=== PATIENT | male | born 1945 | race Caucasian/White ===

== ENCOUNTER → 2024-04-30 | Outpatient (CLI) | payer MEDICARE ==
[2024-04-30 15:13] LABS: HCT 39.9 % (39.6-50.0); HGB 13.6 g/dL (13.0-17.0); MCH 33.3 pg (27.0-32.0); MCHC 34.1 g/dL (32.0-37.0); MCV 97.8 FL (80.0-97.0); NRBC Per 100 WBC 0 X 10*3/uL (0.00-0.01); Platelet Count 224 X 10*3/uL (140-440); RBC 4.08 X 10*6/uL (4.40-5.60); RDW 12.2 % (11.5-14.5); WBC 4.04 X 10*3/uL (4.50-10.00)
[2024-04-30 15:19] LABS: Blood Urea Nitrogen 9.8 mg/dL (9.0-27.0); Carbon Dioxide 26.9 mmol/L (21.6-31.8); Chloride 97 mmol/L (96-109); Potassium 4.6 mmol/L (3.5-5.5); Sodium 133 mmol/L (135-145)
== END | disposition home or self-care (01) ==
LOC: LABPAT 08:19
PROVIDERS: ATTEND Internal Medicine Clinical Cardiac Electrophysiology
DX: Z01.812 Encounter for preprocedural laboratory examination (principal); I44.1 Atrioventricular block, second degree; R00.1 Bradycardia, unspecified
CPT/HCPCS: 80051; 82565; 84520; 85027

== ENCOUNTER 2024-05-08 11:59 | Day surgery (SDC) | payer MEDICARE ==
[2024-05-08] MEDS: SODIUM CHLORIDE 0.9% 1,000 ML IV SCH (13:04)
[2024-05-08] MEDS: IV FLUID CONTINUATION 1,000 ML IV ONE (13:12)
[2024-05-08] MEDS ORDERED: diphenhydrAMINE 50 MG/ML 1 ML VIAL ONE (14:55)
[2024-05-08] MEDS ORDERED: fentaNYL (PF) 50 MCG/ML 2 ML AMP ONE (14:55)
[2024-05-08] MEDS ORDERED: MIDAZOLAM 2 MG/2 ML VIAL ONE (14:55)
[2024-05-08] MEDS: ceFAZolin 1 GM in SODIUM CHLORIDE 0.9% IRRIG BTL 250 ML IRRIGATION PRN (15:05)
[2024-05-08] MEDS: LIDOCAINE 2% (PF) 20 MG/ML 10 ML AMP SQ ONE (15:32)
[2024-05-08] MEDS: ROPIVACAINE 5MG/ML 20ML VIAL MISCELLANE ONE (15:32)
--- NOTE | 2024-05-08 17:04 | P.PRLE ---
RE: Jony Guzman Dear Liza Jony underwent implantation of a conduction system pacemaker with left bundle pacing for high-grade AV block. Hopefully this preserves his LV function over the years. He will continue statin therapy along with losartan as before and will follow-up in the device clinic in about a week Thank you for entrusting me with the care of the patient Warm regards Sincerely Guillermo Browning
--- NOTE | 2024-05-08 17:07 | P.EPPROC ---
- EP Procedure Note Electrophysiology Procedure Note: Diagnosis Symptomatic bradycardia, unprovoked, no triggering factors Advanced heart block, Mobitz 2 AV block with intermittent third-degree heart block Procedure Dual-chamber pacemaker implantation with conduction system pacing (left bundle pacing) Left upper extremity venogram Details Patient was brought to the EP lab in a fasting state. Written informed consent was obtained prior to the procedure. Conscious sedation provided by [employer]. IV antibiotics administered. Local anesthesia administered. A 4 cm incision made in the pectoral area. Subfascial pocket made. Venous accesses obtained Venous sheaths placed. Leads placed in the right heart. 2 sets of pacing cables were used; one for backup temporary pacing and the other for assessment of current of injury and signal analysis. A 52 cm atrial pacing lead was first positioned in the RV apex for temporary pacing during mapping and conduction system pacing Thresholds were interrogated and backup high output pacing was provided This atrial lead was then removed from the right ventricle and later positioned in the right atrial appendage and the permanent lead A deflected sheath was prepped. A coronary sinus decapolar catheter was placed within this sheath. The catheter along with the sheath was then passed into the right heart, the catheter was prolapsed across the tricuspid valve, into the right ventricle and then further into the right ventricular outflow tract across the pulmonic valve into the pulmonary artery. This sheath was slid over this decapolar catheter into the RVOT. Thereafter the catheter last sheath assembly was withdrawn from the RVOT along the septum to the mid septal area. The sheath was appropriately to to map the right ventricular aspect of the septum. The decapolar catheter was withdrawn, the sheath flushed again and the screw-in pacing lead placed within the sheath. Further detailed unipolar pace-mapping of the septum was performed and once the appropriate based morphology was obtained on lead V1, the lead was screwed into the septum. The lead was screwed in 4-5 returns at a time while monitoring the current of injury, the pacing impedance changes and the paced QRS morphology. The stimulus to peak of V6 QRS was measured at each step. Once a QR or rSR pattern of paced QRS in lead V1 was obtained, a left bundle signal was sought. Impedance was measured and thresholds were measured. An impedance drop of 100-200 ohms but above 550 ohms was targeted along with an unchanged vector of the current of injury signal. The final positioning was based on the QRS morphology in lead V1 and a short stimulus to peak of the V6 QRS of less than 90 ms. The sheath was withdrawn, stability of the pacing lead deep in the septum was confirmed on CORTEZ and [place] views and the sheath was slipped and an adequate heel was provided for the lead. Unipolar and bipolar electrogram morphology obtained Atrial lead positioned in the right atrial appendage. Sensing, thresholds and impedances measured following positioning and securing the lead in the right atrial appendage Left bundle lead parameters: Unipolar pacing impedance 741 ohms, bipolar pacing impedance 893 ohms R waves 10 mV and pacing threshold 0.5 V at 0.4 ms Paced QRS of right bundle branch block type, QRS width 142 ms Stimulus to lead I peak equals 63 ms Stimulus to peak of V6 equals 76 ms Atrial lead parameters: P waves 3.3 mV, pacing threshold 0.5 V at 0.4 ms and pacing impedance of 817 ohms Device clinical partner: [employer] Dania XT DR MRI Dual-chamber pacemaker device connected to the leads and placed in the subfascial pocket Patient tolerated the procedure well without acute complications Pacemaker programming: DDD 60-130 bpm, paced AV delay of 200 ms
[2024-05-08] MEDS: ACETAMINOPHEN IV (For NPO) 1,000 MG in EMPTY BAG 1 BAG IVPB ONE (18:24)
[2024-05-09] MEDS: ACETAMINOPHEN TAB 325 MG TAB PO PRN (03:23)
--- NOTE | 2024-05-09 07:06 | XR ---
EXAMINATION TYPE: XR chest 2V DATE OF EXAM: 05/09/2024 6:48 AM COMPARISON: None CLINICAL INDICATION: Male, 78 years old with history of Lead placement check; [facility] TECHNIQUE: XR chest 2V Frontal and lateral views of the chest. FINDINGS: Lungs/Pleura: There is no evidence of pleural effusion, focal consolidation, or pneumothorax. Pulmonary vascularity: Unremarkable. Heart/mediastinum: Cardiomediastinal silhouette is unremarkable. Two lead cardiac conduction device o verlying the left hemithorax with lead tips projecting over the right ventricle and right atrium. Musculoskeletal: No acute osseous pathology. Other findings: None IMPRESSION: No acute cardiopulmonary disease/process. [facility], , 05/09/2024 7:04 AM
[2024-05-09] MEDS: LOSARTAN 50 MG TAB PO SCH (07:56)
[2024-05-09] MEDS: ATORVASTATIN 20 MG TAB PO SCH (07:56)
--- NOTE | 2024-05-09 08:10 | P.DS ---
Providers Attending physician: Guillermo Browning Primary care physician: [facility] Course: Patient is doing well. He is resting comfortably in a chair No chest discomfort no shortness of breath No JVD Pacemaker site is healed well minimal tenderness no swelling no oozing or soakage On examination his blood pressure is normal Heart sounds S1-S2 normal Breath sounds are clear and equal bilaterally Impression Advanced heart block without any triggering factors with associated bradycardia Hypertension Status post conduction system pacing with left bundle pacing, dual-chamber Chest x-ray shows stable lead position no pneumothorax Twelve-lead EKG shows right bundle branch block pattern, QR in lead V1 with a very rapid initial electrical forces in the left ventricle, very short stimulus to peak of R wave in lead I and in V6 consistent with left bundle pacing Plan Discharge home after device interrogation Continue current medications Watch blood pressure and maximize as tolerated Continue rosuvastatin for cardiovascular risk management Plan - Discharge Summary Discharge Rx Participant: No New Discharge Prescriptions: Continue Rosuvastatin Calcium 10 mg PO DAILY Losartan Potassium 50 mg PO DAILY Glucosamine/Chondr Carlos A Sod [Osteo Bi-Flex Caplet] 2 each PO DAILY Cholecalciferol (Vitamin D3) [Vitamin D3 (125 MCG = 5,000 IU)] 125 mcg PO DAILY Psyllium Husk (with Sugar) [Metamucil Powder] 1 dose PO DAILY Mv-Min/Folic/K1/Lycopen/Lutein [Centrum Silver Men Tablet] 1 tab PO DAILY Discharge Medication List Cholecalciferol (Vitamin D3) [Vitamin D3 (125 MCG = 5,000 IU)] 125 mcg PO DAILY 05/04/24 [History] Glucosamine/Chondr Carlos A Sod [Osteo Bi-Flex Caplet] 2 each PO DAILY 05/04/24 [History] Losartan Potassium 50 mg PO DAILY 05/04/24 [History] Mv-Min/Folic/K1/Lycopen/Lutein [Centrum Silver Men Tablet] 1 tab PO DAILY 05/04/24 [History] Psyllium Husk (with Sugar) [Metamucil Powder] 1 dose PO DAILY 05/04/24 [History] Rosuvastatin Calcium 10 mg PO DAILY 05/04/24 [History] Follow up Appointment(s)/Referral(s): Guillermo Browning MD [STAFF PHYSICIAN] - 05/14/24 11:00 am (DEVICE CLINIC FOLLOW UP APPOINTMENT MADE. ) Activity/Diet/Wound Care/Special Instructions: PATIENT EDUCATION MATERIAL Instructions following a heart rhythm device implant. 1. Keep dressing DRY for 5 DAYS. You may cover the area with Saran or Cling Wrap, prior to a shower. 2. The dressing will be removed in the Device Clinic at [facility]. Absorbable sutures were used to close the wound. 3. Avoid raising the left arm above the shoulder level. 4 week restriction 4. Avoid arm movements, like backscratching, rubbing the head, or pulling on a cord. 4 weeks restriction 5. Gentle range of motion movements of the shoulder, closest to the incision should be performed to avoid a frozen shoulder. (Pendulum exercises of the shoulder) 6. The opposite arm may be used freely. 7. Avoid driving for 7 days. 8. Avoid activities such as golfing, swimming, weed whacking, lifting more than 10 pounds weight, bowling, gymnastics and weight training/lifting. (6 weeks restriction) 9. Activities such as wood chopping with an axe, pull-ups in the gymnasium, power lifting, arc-welding, being close to home induction cooktops will always be a problem. 10. Arm sling is only a reminder not to raise the arm above the head. You do not need to keep the arm completely immobilized. Your free to move the arm and use it and for normal activities. In case of any problems, please call [facility], @ [phone], Attention: Device Clinic Device clinic follow-up in 5 days Follow-up with primary roll operator Dr. Browning, in 2-3 months Discharge Disposition: HOME SELF-CARE
[2024-05-09 08:25] VITALS: BP 159/88; PULSE 63; RESP 16; TEMP 97.7
== END 2024-05-09 09:55 | disposition home or self-care (01) ==
LOC: CATHEP 11:59 → 6NMEDSUR 16:43 → CATHEP 05-09 09:55
PROVIDERS: ATTEND Internal Medicine Clinical Cardiac Electrophysiology
DX: R00.1 Bradycardia, unspecified (principal); I44.1 Atrioventricular block, second degree; Z95.0 Presence of cardiac pacemaker; I49.5 Sick sinus syndrome; I10 Essential (primary) hypertension; E78.5 Hyperlipidemia, unspecified; I65.29 Occlusion and stenosis of unspecified carotid artery; E11.9 Type 2 diabetes mellitus without complications; Z79.4 Long term (current) use of insulin; F17.210 Nicotine dependence, cigarettes, uncomplicated
CPT/HCPCS: 93005; 33208; 84443; 71046; C1898; C1785; J2250; J1200; J2003; J0690 ×2; J3010; J0131; J2795